=== PATIENT | male | born 1950 | race African-American/Black ===

== ENCOUNTER 2019-07-26 08:11 | Outpatient (CLI) | payer MEDICARE ==
--- NOTE | 2019-07-26 08:45 | ULT ---
ULTRASOUND ABDOMINAL AORTA: HISTORY: Aortic aneurysm screening. COMPARISON: None. FINDINGS: Real-time, wade scale, color Doppler, and spectral analysis of the abdominal aorta was performed. The proximal aorta measured 15.3 cm. The mid aorta measured 1.8 cm. The distal aorta measured 1.7 c m. The iliac vessel is without aneurysmal dilatation. IMPRESSION: No abdominal aortic aneurysm. POS: [facility]
== END 2019-07-26 08:12 | disposition home or self-care (01) ==
LOC: BICULT 08:11
PROVIDERS: ATTEND Family Medicine
DX: Z13.6 Encounter for screening for cardiovascular disorders (principal); Z87.891 Personal history of nicotine dependence
CPT/HCPCS: 76775